=== PATIENT | female | born 1965 | race Caucasian/White ===

== ENCOUNTER → 2019-07-10 09:30 | Outpatient (CLI) | payer MEDICAID, SELFPAY ==
--- NOTE | 2019-07-10 09:35 | CA_ITS ---
APPROVED REPORT [employer] Installer: CT Laterality: Bilateral Study Quality: Good Indications: Amaurosis Fugax Risk Factors Smoking Doppler Spectral Velocity Analysis ECA (R) 77.30/ cm/s ECA (L) 70.90/ cm/s dICA (R) 85.60/46.00 cm/s dICA (L) 97.00/47.20 cm/s Ju (R) 113.00/47.80 cm/s Ju (L) 104.00/45.40 cm/s pICA (R) 74.20/34.60 cm/s pICA (L) 78.60/31.40 cm/s dCCA (R) 74.20/32.10 cm/s dCCA (L) 72.30/37.70 cm/s pCCA (R) 85.00/26.00 cm/s pCCA (L) 85.50/27.70 cm/s Vert (R) 45.90/ cm/s Vert (L) 59.70/ cm/s ICA/CCA 1.52 ICA/CCA 1.44 Findings Duplex evaluation demonstrates stenosis of the right proximal internal carotid artery in the range of 20-49%, lower end of scale. Duplex evaluation demonstrates stenosis of the left proximal internal carotid artery in the range of 20-49%, lower end of scale. Duplex evaluation demonstrates antegrade flow of the bilateral Vertebral Arteries. Conclusion Duplex evaluation demonstrates stenosis of the right proximal internal carotid artery in the range of 20-49%, lower end of scale. Duplex evaluation demonstrates stenosis of the left proximal internal carotid artery in the range of 20-49%, lower end of scale. Duplex evaluation demonstrates antegrade flow of the bilateral Vertebral Arteries. Electronically signed by : Olayinka Fang MD 07/10/2019 15:48:26
== END ==
PROVIDERS: PCP Family Medicine; Visit Provider Ophthalmology
DX: G45.3 Amaurosis fugax (principal)
CPT/HCPCS: 93880